=== PATIENT | female | born 1965 | race Caucasian/White ===

== ENCOUNTER 2022-06-13 17:57 | Emergency (ER) | payer OTHER, SELFPAY ==
--- NOTE | ~2022-06-13 | XR_ITS ---
EXAM: XR foot RT min 3V DATE: 06/13/2022 18:21 HISTORY: twisted foot, pain and swelling on lateral foot . COMPARISON: None available. FINDINGS: Normal mineralization. No fracture or dislocation. No lytic or blastic lesion. Joint space s are maintained. No erosion or periosteal change. Soft tissues within normal limits. IMPRESSION: No acute osseous finding in the right foot. Reviewed, dictated and finalized at location K.
[2022-06-13 18:12] VITALS: BP 117/66; PULSE 54; RESP 18; TEMP 36.9; O2SAT 100
--- NOTE | 2022-06-13 19:06 | ED.LOWEXIN ---
HPI - Extremity Injury (Lower) General Chief Complaint: Extremity Injury, Lower Stated Complaint: rt foot injury Time Seen by Provider: 06/13/22 18:15 Source: patient Mode of arrival: ambulatory Limitations: no limitations History of Present Illness HPI Narrative: Patient presents today complaining of right foot injury. States she was carrying something down a set of stairs 3 days ago when she stepped incorrectly and twisted her right foot and heard a pop. She has had some swelling in that area since the injury and has been walking with a limp. She currently rates her pain at rest 1/10, which increases with weightbearing. She has been applying ice. States she has not taken any [id number] medication for pain prior to arrival. Denies numbness or tingling. Related Data Home Medications Medication Instructions Recorded Confirmed bupropion HCl 300 mg 24 hr tablet, 300 mg PO DAILY 06/13/22 06/13/22 extended release fluoxetine 40 mg capsule 80 mg DAILY 06/13/22 06/13/22 Allergies Allergy/AdvReac Type Severity Reaction Status Date / Time No Known Allergies Allergy Verified 06/13/22 18:16 Review of Systems Review of Systems: CONSTITUTIONAL: Denies body aches, fever, chills, or sweats. EYES: Denies visual changes, redness, or discharge. ENT: Denies rhinorrhea, congestion, sore throat, or otalgia. CARDIOVASCULAR: Denies chest pain, palpitations, or edema. RESPIRATORY: Denies cough or dyspnea. GASTROINTESTINAL: Denies abdominal pain, nausea, vomiting, or diarrhea. GENITOURINARY: Denies dysuria or hematuria. SKIN: Denies rash, itching, or wounds. MUSCULOSKELETAL: Denies back pain, or myalgia.+ Right foot injury NEUROLOGIC: Denies headache, numbness, tingling, or weakness. PSYCH: Denies depression or anxiety. PMFSH Comments At time of signature, I have reviewed and agree with nursing past medical, surgical, social and family history unless otherwise noted. Please see nursing chart for further information. There is no relevant family history pertinent to the presenting complaint Exam Narrative: GENERAL: Well-appearing, well-nourished, and in no acute distress. HEAD: Normocephalic, atraumatic. EYES: EOMI. No redness or drainage. Conjunctivae normal. ENT: Mucous membranes pink and moist. NECK: Normal AROM. CHEST: No respiratory distress. EXTREMITIES: Right foot: Tenderness and localized edema to the lateral midfoot. Distal sensation intact. Capillary refill normal. Pedal pulse normal. Full range of motion of all toes and ankle. No pain to the ankle. SKIN: Warm, dry, no rash. Capillary refill normal. Normal skin turgor. NEURO: No focal deficits. Alert and oriented x3. Gait steady. PSYCH: Normal affect. No signs of depression or anxiety. Course Course Level of Care: Express Care Visit Vital Signs Vital signs: Vital Signs Temperature 98.5 F 06/13/22 18:12 Pulse Rate 54 L 06/13/22 18:12 Respiratory Rate 18 06/13/22 18:12 Blood Pressure 117/66 06/13/22 18:12 Pulse Oximetry 100 06/13/22 18:12 Oxygen Delivery Room Air 06/13/22 18:12 Temperature 98.5 F 06/13/22 18:12 Pulse Rate 54 L 06/13/22 18:12 Respiratory Rate 18 06/13/22 18:12 Blood Pressure 117/66 06/13/22 18:12 Pulse Oximetry 100 06/13/22 18:12 Oxygen Delivery Room Air 06/13/22 18:12 Reviewed. Pt has been instructed to follow up with his PCP regarding his elevated blood pressure today. MDM - Extremity Injury (Lower) Differential Diagnosis Differential diagnosis: Likely other (Foot fracture, foot sprain, contusion) Imaging Data Radiologist's impression: ITS Impressions Foot X-Ray 06/13/22 18:59 IMPRESSION: No acute osseous finding in the right foot. Critical Care Time Critical Care Time Critical Care Time: No Discharge Plan Discharge Clinical Impression: Right foot sprain Patient Disposition: Home, Self-Care Condition: Stable Instructions: Foot Sprain (E
== END 2022-06-13 19:09 | disposition home or self-care (01) ==
PROVIDERS: Emergency Provider Nurse Practitioner
DX: S93.601A Unspecified sprain of right foot, initial encounter (principal); X50.9XXA Other and unspecified overexertion or strenuous movements or postures, initial encounter; F32.9 Major depressive disorder, single episode, unspecified
CPT/HCPCS: 73630; 99213; G0463

== ENCOUNTER 2023-09-06 17:56 | Emergency (ER) | payer OTHER, SELFPAY ==
--- NOTE | ~2023-09-06 | XR_ITS ---
EXAMINATION: XR sternum min 2V INDICATION: Sternal pain TECHNIQUE: Two views of the sternum are obtained. COMPARISON: 06/23/2008 FINDINGS: No displaced sternal fracture is identified. There is a questionable oblique nondisplaced f racture of the lower sternum just above the xiphoid process. The visualized lungs are clear. IMPRESSION: 1. Possible undisplaced oblique fracture of the lower sternum. Consider follow-up with CT. Reviewed, dictated and finalized at location F. IMPRESSION: 1. Possible undisplaced oblique fracture of the lower sternum. Consider follow- up with CT.
[2023-09-06 18:08] VITALS: BP 128/72; PULSE 59; RESP 16; TEMP 36.5; O2SAT 100
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
--- NOTE | 2023-09-06 19:11 | ECG_ITS ---
Measurements Intervals [place] Rate: 54 P: 53 AL: 151 QRS: 59 QRSD: 98 T: 57 QT: 465 QTc: 441 Interpretive Statements SINUS BRADYCARDIA OTHERWISE NORMAL ECG NO PREVIOUS ECG AVAILABLE FOR COMPARISON Electronically Signed On 09-07-2023 8:59:28 CDT by Сергей Story M.D.
== END 2023-09-06 19:15 | disposition home or self-care (01) ==
PROVIDERS: Emergency Provider Nurse Practitioner
DX: S22.20XA Unspecified fracture of sternum, initial encounter for closed fracture (principal); S06.0X0A Concussion without loss of consciousness, initial encounter; Z79.899 Other long term (current) drug therapy; V43.52XA Car driver injured in collision with other type car in traffic accident, initial encounter
CPT/HCPCS: 71120; 93005; 99213; G0463